=== PATIENT | female | born 1985 | race Two or more races ===

== ENCOUNTER 2023-09-30 21:51 | Outpatient (CLI) | payer OTHER ==
--- NOTE | 2023-10-01 19:53 | Ultrasound Report ---
PROCEDURE: Extremity Soft Tissue Limited INDICATIONS: SHOULDER MASS TECHNIQUE: Real-time scanning was performed of the right shoulder, with image documentation. COMPARISON: None. FINDINGS: Focused ultrasound examination of superior right shoulder at patient's reported area of pa lpable lump shows a solid appearing well-circumscribed structure measures 1.6 x 0.5 x 1.1 cm in size and is isoechoic to adjacent subcutaneous fat. No internal vascularity. IMPRESSION: Finding most likely represent benign lipoma in superior right shoulder soft tissue. Clin ical correlation and follow-up is recommended. Reviewed by: Vasu Schwab MD on 10/01/2023 7:51 PM PDT Approved by: Vasu Schwab MD on 10/01/2023 7:51 PM PDT Station ID: [id number]
== END 2023-09-30 21:52 | disposition home or self-care (01) ==
LOC: DI 21:51
PROVIDERS: ATTEND Nurse Practitioner Family
DX: M25.811 Other specified joint disorders, right shoulder (principal)

== ENCOUNTER 2023-12-24 12:55 | Outpatient (CLI) | payer OTHER ==
[~2023-12-24 12:55] MED LIST: GADOTERATE MEGLUMINE 7.5 MMOL/15 ML VIAL ONE
[2023-12-24] MEDS: GADOTERATE MEGLUMINE 7.5 MMOL/15 ML VIAL IVP ONE (16:49)
--- NOTE | 2023-12-30 11:10 | MRI Report ---
PROCEDURE: Abdomen W/WO INDICATIONS: LIVER LESION CONTRAST: Clariscan 13.2ml TECHNIQUE: Coronal ultra fast SE, axial 2D spoiled GE in- and [id number]; axial breath-hold T2 fast SE. Dynam ic axial ultra fast GE during the administration of contrast; post-contrast coronal ultra fast GE or 2D spoiled GE with fat saturation from the hepatic dome to the iliac crests. Restricted diffusion bhavya ghted imaging and ADC. COMPARISON: None available. FINDINGS: Image quality: Excellent. Lung bases and heart: Unremarkable. Liver: Liver surface is smooth. Several lesions identified. The lesions are isointense on T1 images, no convincing signal dropout on the opposed phase images, subtle T2 hyperintense and high B values si gnal, homogeneous arterial hyperenhancing which become isointense on the portal venous and delayed ph ases. Segment 2 lesion measuring 3.2 x 2.8 cm, (04/03). Segment 2 lesion measuring 1.4 x 1.1 cm, (03/28). Segment 8/7 at the dome lesion measuring 0.8 x 0.8 cm, (03/22). Segment 7 lesion measuring 1.5 x 1.3 cm, (04/09). Segment 7 subcapsular lesion measuring 1.2 x 0.8 cm, (04/04). Gallbladder and biliary tree: No radiopaque stones or wall thickening. No biliary dilation. Spleen: No splenomegaly. Pancreas: No pancreatic ductal dilation. Adrenals: No adrenal nodule. Kidneys and ureters: No hydronephrosis. No renal cystic lesion which requires follow up. No solid mas s. Bowel and peritoneum: No bowel distension. No pathologic free fluid. Right colostomy. Lymph nodes: No central or retroperitoneal adenopathy. Vessels: No infrarenal aortic aneurysm. Bones: No aggressive osseous abnormality. Other: No significant ventral hernia. IMPRESSION: Several arterial hyperenhancing lesions in the liver. Largest in segment 2 measures 3.2 cm. These could represent hepatic adenomas. FNH is also on the differential diagnosis. Less likely tracy ioma or metastatic disease. Recommend comparison with prior imaging when available. MRI with Eovist hepatobiliary agent would be helpful. Ultrasound-guided biopsy could also be considered. No adenopathy. Right colostomy. Reviewed by: Dav Nonoan MD on 12/30/2023 11:09 AM PDT Approved by: Dav Noonan MD on 12/30/2023 11:09 AM PDT Station ID: [id number]
== END 2023-12-24 12:56 | disposition home or self-care (01) ==
LOC: DI 12:55
PROVIDERS: ATTEND Nurse Practitioner Family
DX: C18.9 Malignant neoplasm of colon, unspecified (principal); K76.9 Liver disease, unspecified; Z90.49 Acquired absence of other specified parts of digestive tract